=== PATIENT | female | born 1970 | race Caucasian/White ===

== ENCOUNTER → 2020-01-20 15:16 | Outpatient (BNVA) | payer BC, SELFPAY | PROVIDERS: Visit Provider Nurse Practitioner | DX: B34.9 Viral infection, unspecified (principal); Z20.828 Contact with and (suspected) exposure to other viral communicable diseases | CPT/HCPCS: 87081; 87400; 87635; 87880 ==

== ENCOUNTER → 2020-01-26 09:41 | Outpatient (BNVA) | payer BC, SELFPAY | PROVIDERS: Visit Provider Nurse Practitioner Family | DX: R06.2 Wheezing (principal); R05 Cough; R06.02 Shortness of breath; J43.9 Emphysema, unspecified | CPT/HCPCS: 71046 ==

== ENCOUNTER 2020-10-14 10:29 | Outpatient (CLI) | payer OTHER, SELFPAY ==
--- NOTE | 2020-10-14 11:03 | CT_ITS ---
WS: [id number] CT CHEST WITHOUT INTRAVENOUS CONTRAST HISTORY: CHEST PAIN/SHORTNESS OF BREATH TECHNIQUE: Contiguous 5 mm axial imaging performed on the thorax. Coronal and sagittal reformats are submitted. All CT scans at [facility] use at least one of these dose optimization techniq ues: automated exposure control; mA and/or kV adjustment per patient size (includes targeted exams wh ere dose is matched to clinical indication); or iterative reconstruction. CONTRAST: None DLP: 382.14 mGy.cm COMPARISON: None available. Lungs and central airway: There are patchy opacifications anteriorly in the RIGHT middle lobe and in the anterior RIGHT lower lobe and also the lingula. Configuration suggests these are all related to a telectasis. Pleura: Normal. No pleural effusion. Heart and pericardium: Normal size heart with no pericardial effusion. Mediastinum and jose daniel: Calcified lymph nodes in the mediastinum and LEFT hilum. Vessels: Normal size aortic and pulmonary artery. No coronary artery calcifications. Chest wall and lower neck: Bilateral breast implants. Upper abdomen: Prior cholecystectomy. Mild hepatic steatosis. Osseous structures: No destructive process. CT/CT chest wo con [id number] IMPRESSION: 1. Subsegmental areas of atelectasis in the anterior RIGHT middle, RIGHT lower and lingula. Suggest 2-3 month follow-up after treatment to be sure these area s resolve and there is no underlying neoplasm. 2. Bilateral breast implants.
== END 2020-10-14 10:30 | disposition home or self-care (01) ==
PROVIDERS: PCP Nurse Practitioner Family; Visit Provider Nurse Practitioner Family
DX: R06.02 Shortness of breath (principal); R07.9 Chest pain, unspecified; J98.11 Atelectasis; Z98.82 Breast implant status
CPT/HCPCS: 71250; 80053; 80061; 81003; 82306; 83036; 84443; 85007; 85027; 87077; 87086; 87184

== ENCOUNTER 2020-10-31 10:40 | Emergency (ER) | payer OTHER, SELFPAY ==
[2020-10-31 11:09] VITALS: BP 132/85; PULSE 86; RESP 18; TEMP 36.7; O2SAT 97; BMI 21.9
--- NOTE | 2020-10-31 11:33 | XRR_ITS ---
PROCEDURE INFORMATION: Exam: XR Chest, 1 View Exam date and time: 10/31/2020 11:38 AM Age: 50 years old Clinical indication: Shortness of breath; Additional info: Cough TECHNIQUE: Imaging protocol: XR of the chest Views: 1 view. COMPARISON: CT chest con [id number] 10/14/2020 11:02 AM FINDINGS: Lungs: Unremarkable. No consolidation. Pleural space: Unremarkable. No pleural effusion. No pneumothorax. Heart/Mediastinum: Unremarkable. No cardiomegaly. Bones/joints: Unremarkable. XR/XR chest 1V portable [id number] IMPRESSION: No acute findings.
[2020-10-31 11:43] VITALS: O2SAT 97
[2020-10-31] MEDS: HYDROcodone-acetaminophen 5-325 mg Tablet 1 TAB PO (11:50)
[2020-10-31] MEDS: ondansetron 4 MG Tablet PO (11:50)
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
[2020-10-31 12:51] VITALS: BP 117/67; PULSE 81; RESP 18; O2SAT 95
[2020-11-01 15:32] LABS: Coronavirus Test Green County DETECTED
== END 2020-10-31 12:51 | disposition home or self-care (01) ==
PROVIDERS: Emergency Provider Emergency Medicine; PCP Nurse Practitioner Family
DX: U07.1 COVID-19 (principal); R09.1 Pleurisy
CPT/HCPCS: 12345; 71045; 87635; 99281; 99283; Q0162

== ENCOUNTER → 2020-11-26 12:09 | Outpatient (BNVA) | payer OTHER, SELFPAY | PROVIDERS: PCP Nurse Practitioner Family; Visit Provider Nurse Practitioner Family | DX: E03.9 Hypothyroidism, unspecified (principal); F41.9 Anxiety disorder, unspecified; A49.9 Bacterial infection, unspecified; N39.0 Urinary tract infection, site not specified | CPT/HCPCS: 81003; 84443; 87077; 87086; 87184 ==

== ENCOUNTER 2020-12-01 12:16 | Outpatient (CLI) | payer OTHER, SELFPAY ==
[2020-12-01 12:53] LABS: Basophils % 0.4 %; Eosinophils # 0.3 10^3/uL (0.0-0.8); Eosinophils % 5.4 %; Hematocrit 41.7 % (37.0-47.0); Hemoglobin 13.6 g/dL (11.5-15.3); Lymphocytes # 1.5 10^3/uL (0.8-4.8); Lymphocytes % 29.6 %; Mean Corpuscular HGB Conc 32.6 g/dL (30.0-36.0); Mean Corpuscular Hemoglobin 32.2 pg (28.0-34.0); Mean Corpuscular Volume 98.8 fL (81-99); Mean Platelet Volume 9.5 fL (7.4-10.4); Monocytes # 0.3 10^3/uL (0.2-0.9); Neutrophils # 2.95 10^3/uL (1.8-7.7); Neutrophils % 59.6 %; Nucleated Red Blood Cells % 0 %; Platelet Count 252 10^3/cmm (130-400); Red Blood Count 4.22 10^6/uL (4.1-5.3); Red Cell Distribution Width 13.7 % (12.1-15.1)
[2020-12-02 16:09] LABS: Alternaria Alternata (M6) Ige <0.10 kU/L; Alternaria Class 0; Cat Dander (E1) Ige 0.11 kU/L; Cat Dander Class 0/1; D. Farinae Class 0; Dermatophagoides Class 0; Dermatophagoides Farinae (D2) <0.10 kU/L; Dermatophagoides Pteronyssinus <0.10 kU/L; Dog Dander Class 4; Elm (T8) Ige <0.10 kU/L; Elm Class 0; English Plantain (W9) Ige <0.10 kU/L; English Plantain Class 0; House Dust (Greer) (H1) Ige 2.61 kU/L; House Dust (Hollister- Stier) 1.27 kU/L; House Dust Class 2; Immunoglobulin E 106 kU/L (<OR=114); Immunoglobulin E 113 kU/L (<OR=114); Lamb'S Quarters (Goose Foot) <0.10 kU/L; Lamb'S Quarters Class 0; Maple (Box Elder) (T1) Ige <0.10 kU/L; Maple Class 0; Mucor Racemosus Class 0; Oak (T7) Ige <0.10 kU/L; Oak Class 0; Penicillium Class 0; Penicillium Notatum (M1) Ige <0.10 kU/L; Ragweeed Class 3; Rough Marsh Elder (W16) Ige 0.59 kU/L; Rough Marsh Elder Class 1
[2020-12-03 15:38] LABS: Bermuda Class 0; Bermuda Grass (G2) Ige <0.10 kU/L; Johnson Grass (G10) Ige <0.10 kU/L; Johnson Grass Cl 0; June Grass Class 0/1; June Grass(Kentucky Blue) (G8) 0.18 kU/L; Meadow Fescue (G4) Ige 0.19 kU/L; Meadow Fescue Class 0/1; Orchard Grass (Cocksfoot) (G3) 0.18 kU/L; Perennial Rye Grass (G5) Ige 0.15 kU/L; Perennial Rye Grass Class 0/1; Sweet Vernal Class 0/1; Sweet Vernal Grass (G1) Ige 0.14 kU/L; Timothy Grass (G6) Ige 0.16 kU/L; Timothy Grass Class 0/1
[2020-12-03 19:14] LABS: Aspergillus Fumigatus, Igg Ab, 12.6 mg/L (<=102)
== END 2020-12-01 12:17 | disposition home or self-care (01) ==
PROVIDERS: PCP Nurse Practitioner Family; Visit Provider Internal Medicine Pulmonary Disease
DX: R06.02 Shortness of breath (principal)
CPT/HCPCS: 36415; 82785; 85025; 86003

== ENCOUNTER 2020-12-01 14:42 | Outpatient (CLI) | payer OTHER, SELFPAY ==
--- NOTE | 2020-12-01 14:54 | XR_ITS ---
WS: [id number] Left shoulder, 3 views, 12/01/2020 Clinical Data: M75.92 - Shoulder lesion, unspecified, left shoulder Comparison: None. Findings: No fractures or dislocations are seen. The AC joint is normal. The adjacent left clavicle, left scapu la and ribs are normal. The soft tissues are unremarkable. There is an enchondroma or bone infarct in the left humeral head. XR/XR shoulder LT min 2V* [id number] Impression: Negative left shoulder.
== END 2020-12-01 14:43 | disposition home or self-care (01) ==
PROVIDERS: PCP Nurse Practitioner Family; Visit Provider Nurse Practitioner Family
DX: M75.92 Shoulder lesion, unspecified, left shoulder (principal)
CPT/HCPCS: 73030

== ENCOUNTER → 2020-12-17 09:34 | Outpatient (BNVA) | payer OTHER, SELFPAY | PROVIDERS: PCP Nurse Practitioner Family; Visit Provider Internal Medicine Pulmonary Disease | DX: Z01.812 Encounter for preprocedural laboratory examination (principal); R06.02 Shortness of breath | CPT/HCPCS: 87635 ==

== ENCOUNTER 2021-06-13 12:56 | Outpatient (CLI) | payer OTHER, SELFPAY ==
--- NOTE | 2021-06-13 13:06 | MM_ITS ---
WS: [id number] BILATERAL SCREENING MAMMOGRAM WITH MAHAMED DISPLACEMENT VIEWS. CAD PERFORMED. HISTORY: SCREENING COMPARISON: 09/08/2010 and 08/25/2010 Bilateral craniocaudal and mediolateral like views are performed. Mahamed displacement views in CC and MLO projection also performed. Breasts composition: The breasts are heterogeneously dense, which may obscure small masses. Retropec kendell implants are intact. Benign calcifications in the LEFT breast. No suspicious masses. MM/[place] [id number] IMPRESSION: BI-RADS: 2-Benign FOLLOW-UP: 1 Year Follow-up
== END 2021-06-13 12:57 | disposition home or self-care (01) ==
LOC: RADSHAW 13:04
PROVIDERS: PCP Nurse Practitioner Family; Visit Provider Registered Nurse
DX: Z12.31 Encounter for screening mammogram for malignant neoplasm of breast (principal)
CPT/HCPCS: 77067

== ENCOUNTER → 2021-06-29 10:12 | Outpatient (BNVA) | payer OTHER, SELFPAY | PROVIDERS: PCP Nurse Practitioner Family; Visit Provider Internal Medicine Rheumatology | DX: M19.90 Unspecified osteoarthritis, unspecified site (principal); R76.8 Other specified abnormal immunological findings in serum; Z79.899 Other long term (current) drug therapy; Z11.59 Encounter for screening for other viral diseases; Z11.1 Encounter for screening for respiratory tuberculosis; M79.7 Fibromyalgia; F32.9 Major depressive disorder, single episode, unspecified; R74.01 Elevation of levels of liver transaminase levels; Z79.1 Long term (current) use of non-steroidal anti-inflammatories (NSAID); Z87.891 Personal history of nicotine dependence | CPT/HCPCS: 99204 ==

== ENCOUNTER 2021-06-29 12:22 | Outpatient (CLI) | payer OTHER, SELFPAY ==
[2021-06-29 13:19] LABS: Specific Gravity, Urine 1.025 (1.005-1.030); Urine Appearance SL Hazy (CLEAR); Urine Color Yellow (Yellow); pH Urine 5 (5-7)
[2021-06-29 13:20] LABS: Bilirubin Urine Neg (Negative); Blood Urine 3+ (Negative); Glucose Urine UA Norm (Normal); Ketones Urine 1+ (Negative); Leukocyte Esterase Urine Negative (Negative); Nitrate Urine Positive (Negative); Protein Urine Neg (Negative); Urobilinogen Urine Norm (Negative)
[2021-06-29 13:21] LABS: Add Urine Culture? Yes; Bacteria Urine 4+ /hpf; WBC Urine 0-4 /hpf (0-5)
[2021-06-29 13:44] LABS: Erythrocyte Sedimentation Rate 8 mm/hr (0-15)
[2021-06-29 13:55] LABS: 25 Hydroxy Vitamin D 37 ng/mL (30-100); C Reactive Protein 0.3 mg/L (0.0-4.9); Glomerular Filtration Rate 130.1 mL/min (90-130); Thyroid Stimulating Hormone 7.73 uIU/mL (0.27-4.20)
[2021-06-29 13:56] LABS: Hepatitis B Core AB, Total Non-Reactive (Nonreactive); Hepatitis B Surface Antigen Non-Reactive (Nonreactive); Hepatitis C Virus Antibody Non-Reactive (Nonreactive)
[2021-06-29 13:59] LABS: Urine Creatinine 153 mg/dL (28-217); Urine Protein Random 13 mg/dL
[2021-06-29 15:00] LABS: Complement C3 152 mg/dL (90-180)
[2021-06-30 12:49] LABS: COMPLEMENT COMPONENT C3C 140 mg/dL (83-193); COMPLEMENT COMPONENT C4C 35 mg/dL (15-57)
[2021-06-30 14:27] LABS: CENTROMERE B ANTIBODY <1.0 NEG AI (<1.0 NEG); JO-1 ANTIBODY <1.0 NEG AI (<1.0 NEG); RNP ANTIBODY <1.0 NEG AI (<1.0 NEG); SCL-70 ANTIBODY <1.0 NEG AI (<1.0 NEG); SJOGREN'S ANTIBODY (SS-A) <1.0 NEG AI (<1.0 NEG); SM ANTIBODY <1.0 NEG AI (<1.0 NEG); SS-B <1.0 NEG AI (<1.0 NEG)
[2021-06-30 14:52] LABS: THYROID PEROXIDASE ANTIBODIES 11 IU/mL (<9)
[2021-06-30 15:32] LABS: Cyclic Citrullinated Peptide <16 UNITS
[2021-07-01 11:13] LABS: ANA SCREEN, IFA POSITIVE (NEGATIVE); Anti-Nuclear AB Pattern #2 Nuclear, Speckled; Anti-Nuclear AB Pattern #3 Cytoplasmic
[2021-07-01 13:37] LABS: COMPLEMENT, TOTAL (CH50) >60 U/mL (31-60)
[2021-07-01 15:37] LABS: Quantiferon Mitogen 8.17 IU/mL; Quantiferon Nil 0.03 IU/mL; Quantiferon Plus TB1 <0.00 IU/mL; Quantiferon TB Gold NEGATIVE (NEGATIVE)
[2021-07-02 17:07] LABS: DNA AB (DS) CRITHIDIA,IFA NEGATIVE (NEGATIVE)
== END 2021-06-29 12:23 | disposition home or self-care (01) ==
PROVIDERS: PCP Nurse Practitioner Family; Visit Provider Internal Medicine Rheumatology
DX: E03.9 Hypothyroidism, unspecified (principal); R76.8 Other specified abnormal immunological findings in serum; Z79.899 Other long term (current) drug therapy; Z11.59 Encounter for screening for other viral diseases; Z11.1 Encounter for screening for respiratory tuberculosis
CPT/HCPCS: 36415; 81001; 82306; 82565; 82570; 84156; 84443; 85651; 86140; 86160; 86162; 86235; 86255; 86376; 86480; 86704; 86803; 87340

== ENCOUNTER 2021-09-26 14:44 | Emergency (ER) | payer OTHER, SELFPAY ==
[2021-09-26 14:55] VITALS: BP 128/82; PULSE 99; RESP 16; TEMP 36.6; O2SAT 99; BMI 26.3
--- NOTE | 2021-09-26 17:43 | XRR_ITS ---
PROCEDURE INFORMATION: Exam: XR Abdomen Exam date and time: 09/26/2021 5:43 PM Age: 50 years old Clinical indication: Abdominal pain; Acute; Patient HX: No bm for 7 days; Additional info: Constipation TECHNIQUE: Imaging protocol: XR of the abdomen. Views: 2 Views. Upright and supine views. COMPARISON: CR XR chest 1V portable [id number] 10/31/2020 11:38 AM FINDINGS: Gastrointestinal tract: Constipation without bowel dilation to indicate obstruction. Intraperitoneal space: Normal. No free air. Bones/joints: Unremarkable for age. XR/XR acute abdomen series [id number] IMPRESSION: Constipation without bowel dilation to indicate obstruction. Radiation Dose CTDIVOL = (mGy): DLP = (mGy-cm)
--- NOTE | 2021-09-26 20:42 | CTR_ITS ---
PROCEDURE INFORMATION: Exam: CT Abdomen And Pelvis With Contrast Exam date and time: 09/26/2021 8:42 PM Age: 50 years old Clinical indication: Constipation; Abdominal pain; Prior surgery; Surgery type: Breast aug, hernia, gb, hyst, , laproscopic; Additional info: Eval small bowel TECHNIQUE: Imaging protocol: Computed tomography of the abdomen and pelvis with contrast. Radiation optimization: All CT scans at this facility use at least one of these dose optimization techniques: automated exposure control; mA and/or kV adjustment per patient size (includes targeted exams where dose is matched to clinical indication); or iterative reconstruction. Contrast material: OMNI 300; Contrast volume: 95 ml; Contrast route: INTRAVENOUS (IV); COMPARISON: CR (ABDOMEN, ) 09/26/2021 5:53 PM RADIATION DOSE METRICS: Total DLP (mGy-cm): 1242.81 FINDINGS: Liver: Normal. No mass. Gallbladder and bile ducts: Cholecystectomy. Prominence of the extrahepatic bile ducts is consistent with reservoir effect. Pancreas: Normal. No ductal dilation. Spleen: Normal. No splenomegaly. Adrenal glands: Normal. No mass. Kidneys and ureters: Normal. No hydronephrosis. Stomach and bowel: Moderate amount of stool in the proximal and transverse colon. The distal colon is decompressed with scattered gas. The stomach and small bowel are unremarkable. No obstruction. Appendix: The appendix is visualized and is normal. Intraperitoneal space: Unremarkable. No free air. No significant fluid collection. Vasculature: Unremarkable. No abdominal aortic aneurysm. Lymph nodes: Unremarkable. No enlarged lymph nodes. Urinary bladder: Unremarkable as visualized. Reproductive: The uterus and ovaries are absent. Bones/joints: Unremarkable. No acute fracture. Soft tissues: Bilateral breast implants. CT/CT abdomen pelvis w con* [id number] IMPRESSION: 1. No acute abnormality identified in the abdomen or pelvis. 2. Stool volume in the colon could indicate constipation in the right clinical setting. Radiation Dose CTDIVOL = (mGy): DLP = 1242.81 (mGy-cm)
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
[2021-09-26] MEDS: iohexol 300 mg/mL 100 mL Btl IV (20:55)
[2021-09-26] MEDS: acetaminophen 500 mg Tablet 1000 MG PO (21:13)
[2021-09-26] MEDS: ondansetron 2 mg/ML SDV 2 mL 4 MG IVP (21:15)
[2021-09-26] MEDS: famotidine 20 mg/2 mL INJ IVP (21:16)
[2021-09-26] MEDS: sodium chloride 0.9% 1,000 ML 999 ML IV (21:18)
[2021-09-26 21:34] LABS: Basophils % 0.6 %; Eosinophils # 0.1 10^3/uL (0.0-0.8); Eosinophils % 2.7 %; Hematocrit 36.1 % (37.0-47.0); Hemoglobin 12.4 g/dL (11.5-15.3); Lymphocytes # 1.9 10^3/uL (0.8-4.8); Lymphocytes % 39.2 %; Mean Corpuscular HGB Conc 34.3 g/dL (30.0-36.0); Mean Corpuscular Hemoglobin 33.2 pg (28.0-34.0); Mean Corpuscular Volume 96.8 fl (81-99); Mean Platelet Volume 9.8 fL (7.4-10.4); Monocytes # 0.3 10^3/uL (0.2-0.9); Monocytes % 5.9 %; Neutrophils # 2.43 10^3/uL (1.8-7.7); Neutrophils % 51.4 %; Nucleated Red Blood Cells % 0 %; Platelet Count 207 10^3/cmm (130-400); Red Blood Count 3.73 10^6/uL (4.1-5.3); Red Cell Distribution Width 12.4 % (12.1-15.1); White Blood Count 4.7 10^3/uL (4.0-10.0)
[2021-09-26 21:54] LABS: Alanine Aminotransferase 35 U/L (0-33); Albumin Level 4.2 g/dL (3.5-5.2); Alkaline Phosphatase 119 IU/L (35-105); Anion Gap 16.5 (5-19); Aspartate Amino Transferase 31 U/L (0-32); Blood Urea Nitrogen 21 mg/dL (6-20); Calcium 8.4 mg/dL (8.5-10.5); Carbon Dioxide 21 mmol/L (22-29); Chloride 104 mmol/L (98-107); Globulin 2.1 g/dL (1.3-4.6); Glomerular Filtration Rate 75.6 mL/min (90-130); Glucose 88 mg/dL (65-115); Osmolality Calculated 288 mOsm/kg (285-295); Potassium 3.5 mmol/L (3.5-5.1); Sodium 138 mmol/L (136-145); Total Bilirubin 0.2 mg/dL (0.15-1.2); Total Protein 6.3 g/dL (6.6-8.7)
[2021-09-26 21:56] LABS: HCG, Serum Qual Negative (Negative)
[2021-09-26 22:19] VITALS: BP 115/73; PULSE 74; RESP 14; O2SAT 98
== END 2021-09-26 20:19 | disposition home or self-care (01) ==
PROVIDERS: Nurse Practitioner Family; Emergency Provider Emergency Medicine; PCP Nurse Practitioner Family
DX: K59.00 Constipation, unspecified (principal); M54.89 Other dorsalgia; R11.2 Nausea with vomiting, unspecified; Z87.891 Personal history of nicotine dependence
CPT/HCPCS: 36415; 74022; 74177; 80053; 84703; 85025; 96361; 96374; 96375; 99284; J2405; J3490; J7030; Q9967

== ENCOUNTER → 2021-10-04 16:54 | Outpatient (BNVA) | payer OTHER, SELFPAY | PROVIDERS: PCP Nurse Practitioner Family; Visit Provider Nurse Practitioner Family | DX: R10.9 Unspecified abdominal pain (principal); E03.9 Hypothyroidism, unspecified; Z13.6 Encounter for screening for cardiovascular disorders; K59.00 Constipation, unspecified; K59.04 Chronic idiopathic constipation; Z79.899 Other long term (current) drug therapy; N39.0 Urinary tract infection, site not specified | CPT/HCPCS: 80053; 80061; 81003; 82150; 83036; 83690; 84439; 84443; 85025 ==

== ENCOUNTER → 2021-10-12 10:07 | Outpatient (BNVA) | payer OTHER, SELFPAY | PROVIDERS: PCP Nurse Practitioner Family; Visit Provider Nurse Practitioner Family | DX: D64.9 Anemia, unspecified (principal); N39.0 Urinary tract infection, site not specified | CPT/HCPCS: 81003; 87086 ==

== ENCOUNTER 2021-10-13 12:09 | Outpatient (CLI) | payer OTHER, SELFPAY ==
--- NOTE | 2021-10-13 12:13 | XR_ITS ---
WS: [id number] ABDOMEN: SUPINE FILM HISTORY: uti COMPARISON: CT 09/26/2021 Moderate diffuse constipation and fecal retention. Phleboliths in the LEFT pelvis. Prior cholecystect kylie. Right kidney: No renal or ureteral stone identified. Left kidney: No renal or ureteral stone identified. XR/XR KUB [id number] IMPRESSION: 1. No renal or ureteral calcifications. 2. Prior cholecystectomy.
== END 2021-10-13 12:10 | disposition home or self-care (01) ==
PROVIDERS: PCP Nurse Practitioner Family; Visit Provider Psychiatry & Neurology Addiction Psychiatry
DX: N39.0 Urinary tract infection, site not specified (principal); A49.9 Bacterial infection, unspecified; R10.84 Generalized abdominal pain; Z90.49 Acquired absence of other specified parts of digestive tract
CPT/HCPCS: 74018; 81003

== ENCOUNTER 2022-01-18 15:10 | Outpatient (CLI) | payer OTHER, SELFPAY ==
--- NOTE | 2022-01-18 15:30 | CT_ITS ---
WS: [id number] CT CHEST TECHNIQUE: Noncontrast CT of the chest with coronal and sagittal reformatted images. CLINICAL INFORMATION: J98.11 - Atelectasis COMPARISON: October 14, 2020 DLP: [address] scans at [facility] use at least one of these dose optimization techniques: automated e xposure control; mA and/or kV adjustment per patient size (includes targeted exams where dose is matc hed to clinical indication); or iterative reconstruction. FINDINGS: Postoperative changes bilateral breast implants. Both lungs are well aerated. No acute pulmonary infi ltrates. No focal pneumonia or pleural fluid. Subsegmental atelectasis RIGHT upper lobe and lingula h ave improved and nearly resolved compared to previous. Normal caliber thoracic aorta. No mediastinal or hilar lymphadenopathy. Calcified anterior mediastinal and hilar nodes. A few calcified granulomas. No axillary lymphadenopathy. Adrenal glands are normal. Cholecystectomy clips. CT/CT chest wo con [id number] IMPRESSION: 1. Previously described areas of subsegmental atelectasis in the RIGHT upper l obe and lingula have improved and nearly resolved. 2. No new suspicious pulmonary opacities. 3. No mediastinal or hilar lymphadenopathy. 4. Prior cholecystectomy.
[2022-01-18 17:21] LABS: Bilirubin Urine Neg (Negative); Blood Urine Neg (Negative); Glucose Urine UA Norm (Normal); Ketones Urine Negative (Negative); Leukocyte Esterase Urine Negative (Negative); Nitrate Urine Negative (Negative); Protein Urine Neg (Negative); Specific Gravity, Urine 1.005 (1.005-1.030); Urine Appearance Clear (CLEAR); Urine Color Yellow (Yellow); Urobilinogen Urine Norm (Negative); pH Urine 7 (5-7)
[2022-01-18 17:22] LABS: Squamous Epithelial Cell Urine 0-4 /hpf (0-5)
[2022-01-18 17:23] LABS: Add Urine Culture? No
== END 2022-01-18 15:11 | disposition home or self-care (01) ==
PROVIDERS: PCP Nurse Practitioner Family; Referring Provider Internal Medicine Rheumatology; Visit Provider Internal Medicine Pulmonary Disease
DX: N39.0 Urinary tract infection, site not specified (principal); Z79.899 Other long term (current) drug therapy; J98.11 Atelectasis; Z90.49 Acquired absence of other specified parts of digestive tract
CPT/HCPCS: 71250; 81001; 87086

== ENCOUNTER 2022-01-20 19:02 | Emergency (ER) | payer OTHER, SELFPAY ==
[2022-01-20 19:03] VITALS: BP 129/97; PULSE 90; RESP 18; TEMP 36.6; O2SAT 98; BMI 23.5
[2022-01-20] MEDS: sodium chloride 0.9% 1,000 ML 999 ML IV (19:20)
[2022-01-20] MEDS: famotidine 20 mg/2 mL INJ IVP (19:20)
[2022-01-20] MEDS: ondansetron 2 mg/ML SDV 2 mL 4 MG IVP ×2 (19:20→22:38)
[2022-01-20 19:21] LABS: Basophils % 0.3 %; Eosinophils # 0.1 10^3/uL (0.0-0.8); Eosinophils % 0.5 %; Hematocrit 45.8 % (37.0-47.0); Hemoglobin 15.3 g/dL (11.5-15.3); Lymphocytes # 2.2 10^3/uL (0.8-4.8); Lymphocytes % 19.5 %; Mean Corpuscular HGB Conc 33.4 g/dL (30.0-36.0); Mean Corpuscular Hemoglobin 34.2 pg (28.0-34.0); Mean Corpuscular Volume 102.5 fl (81-99); Mean Platelet Volume 10.9 fL (7.4-10.4); Monocytes # 0.3 10^3/uL (0.2-0.9); Neutrophils # 8.55 10^3/uL (1.8-7.7); Neutrophils % 76.3 %; Nucleated Red Blood Cells % 0 %; Platelet Count 288 10^3/cmm (130-400); Red Blood Count 4.47 10^6/uL (4.1-5.3); Red Cell Distribution Width 15.2 % (12.1-15.1); White Blood Count 11.2 10^3/uL (4.0-10.0)
[2022-01-20] MEDS: acetaminophen 500 mg Tablet PO (19:21)
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
[2022-01-20 19:33] VITALS: BP 121/80; PULSE 85; RESP 16; O2SAT 99
[2022-01-20 19:46] LABS: Alanine Aminotransferase 218 U/L (0-33); Albumin Level 5.1 g/dL (3.5-5.2); Alkaline Phosphatase 235 IU/L (35-105); Aspartate Amino Transferase 206 U/L (0-32); Blood Urea Nitrogen 28 mg/dL (6-20); Calcium 10.7 mg/dL (8.5-10.5); Carbon Dioxide 21 mmol/L (22-29); Chloride 101 mmol/L (98-107); Globulin 2.9 g/dL (1.3-4.6); Glomerular Filtration Rate 58.2 mL/min (90-130); Glucose 110 mg/dL (65-115); Lipase 34 U/L (13-60); Osmolality Calculated 294 mOsm/kg (285-295); Sodium 139 mmol/L (136-145); Total Bilirubin 0.2 mg/dL (0.15-1.2)
[2022-01-20 19:49] LABS: Anion Gap 20.8 (5-19); Potassium 3.8 mmol/L (3.5-5.1)
[2022-01-20 20:35] LABS: Add Urine Microscopic? YES; Bilirubin Urine Neg (Negative); Blood Urine Neg (Negative); Glucose Urine UA Norm (Normal); Ketones Urine 1+ (Negative); Leukocyte Esterase Urine Trace (Negative); Nitrate Urine Negative (Negative); Protein Urine Neg (Negative); Urine Appearance Clear (CLEAR); Urine Color Yellow (Yellow); Urobilinogen Urine Norm (Negative); pH Urine 5 (5-7)
[2022-01-20 20:38] LABS: Add Urine Culture? No; Bacteria Urine 2+ /hpf; Mucus Urine 3+ /hpf; RBC Urine 0-4 /hpf (0-2); Squamous Epithelial Cell Urine 15-25 /hpf (0-5)
--- NOTE | 2022-01-20 20:50 | CTR_ITS ---
PROCEDURE INFORMATION: Exam: CT Abdomen And Pelvis With Contrast Exam date and time: 01/20/2022 9:02 PM Age: 51 years old Clinical indication: Nausea and vomiting; Prior surgery; Surgery type: Gb. Hernia. Hysterectomy. Csection. ; Patient HX: PT C/O n/v. Recent allergic reaction to cipro. History of recurrent utis. ; Additional info: Eval pathologies TECHNIQUE: Imaging protocol: Computed tomography of the abdomen and pelvis with contrast. Radiation optimization: All CT scans at this facility use at least one of these dose optimization techniques: automated exposure control; mA and/or kV adjustment per patient size (includes targeted exams where dose is matched to clinical indication); or iterative reconstruction. Contrast material: OMNI 300; Contrast volume: 95 ml; Contrast route: INTRAVENOUS (IV); COMPARISON: CT abdomen pelvis w con* [id number] 09/26/2021 8:52 PM RADIATION DOSE METRICS: Total DLP (mGy-cm): 1251.19 FINDINGS: Liver: Hypodensity in the right liver lobe is too small to characterize but is most likely a cyst. No follow-up imaging is recommended. Gallbladder and bile ducts: Cholecystectomy. Mild prominence of the bile ducts is consistent with reservoir effect. Pancreas: Normal. No ductal dilation. Spleen: Normal. No splenomegaly. Adrenal glands: Normal. No mass. Kidneys and ureters: Normal. No hydronephrosis. Stomach and bowel: Fluid in the proximal and transverse colon. Stool in the distal colon. The rectum is decompressed. The stomach is unremarkable. Suspected mild wall thickening throughout the small bowel. No small bowel dilatation or air-fluid levels. Appendix: The appendix is visualized and is normal. Intraperitoneal space: Unremarkable. No free air. No significant fluid collection. Vasculature: Unremarkable. No abdominal aortic aneurysm. Lymph nodes: Unremarkable. No enlarged lymph nodes. Urinary bladder: Unremarkable as visualized. Reproductive: The uterus and ovaries are absent. Bones/joints: Unremarkable. No acute fracture. Soft tissues: Right breast implant. Small fat containing umbilical hernia. CT/CT abdomen pelvis w con* [id number] IMPRESSION: 1. Mild wall thickening in the small bowel could represent mild enteritis. No small bowel dilatation or obstruction.
[2022-01-20] MEDS: iohexol 300 mg/mL 100 mL Btl IV (21:03)
[2022-01-20 21:24] VITALS: RESP 18
[2022-01-20] MEDS: HYDROmorphone 1 mg/mL INJ 1 mL 0.5 MG IVP (21:24)
[2022-01-20] MEDS: lidocaine 2% viscous 15 ML, aluminum-mag hydrox-simethicon 30 ML, sucralfate oral liq 1 GM PO (22:37)
== END 2022-01-20 23:15 | disposition home or self-care (01) ==
PROVIDERS: Emergency Provider Emergency Medicine; PCP Nurse Practitioner Family
DX: N39.0 Urinary tract infection, site not specified (principal); K52.9 Noninfective gastroenteritis and colitis, unspecified; Z87.440 Personal history of urinary (tract) infections; Z87.891 Personal history of nicotine dependence
CPT/HCPCS: 74177; 80053; 81001; 83690; 85025; 96361; 96374; 96375; 96376; 99284; J1170; J2405; J3490; J7030; Q9967

== ENCOUNTER → 2022-02-01 08:44 | Outpatient (BNVA) | payer OTHER, SELFPAY | PROVIDERS: PCP Nurse Practitioner Family; Visit Provider Nurse Practitioner | DX: E03.9 Hypothyroidism, unspecified (principal) | CPT/HCPCS: 84443 ==

== ENCOUNTER → 2022-02-02 15:02 | Outpatient (BNVA) | payer OTHER, SELFPAY | PROVIDERS: PCP Nurse Practitioner Family; Visit Provider Nurse Practitioner | DX: E03.9 Hypothyroidism, unspecified (principal) | CPT/HCPCS: 84436; 84481 ==

== ENCOUNTER 2022-02-16 14:40 | Outpatient (CLI) | payer OTHER, SELFPAY ==
--- NOTE | 2022-02-16 15:15 | US_ITS ---
WS: [id number] THYROID ULTRASOUND HISTORY: enlarged thyroid COMPARISON: None available. Right lobe: 1.3 cm x 0.9 cm x 4.0 cm (w x ap x l). Volume: 2.4 cm3. Small caliber heterogeneous thyroid. No increased vascularity. There are a few scattered ill-defined nodules within the gland which are less than a centimeter. No dominant mass. Left lobe: 1.1 cm x 1.2 cm x 3.8 cm (w x ap x l). Volume: 2.5 cm3. Small caliber shrunken thyroid. No increased vascularity. Isthmus: 0.4 cm. US/US thyroid [id number] IMPRESSION: 1. Shrunken heterogeneous minimally nodular thyroid gland. No dominant nodule. 2. No increased vascularity.
== END 2022-02-16 14:41 | disposition home or self-care (01) ==
LOC: RAD 14:43
PROVIDERS: PCP Nurse Practitioner Family; Visit Provider Nurse Practitioner
DX: E04.9 Nontoxic goiter, unspecified (principal); Z79.899 Other long term (current) drug therapy; M19.90 Unspecified osteoarthritis, unspecified site; N39.0 Urinary tract infection, site not specified
CPT/HCPCS: 36415; 76536; 80076; 81001; 87077; 87086; 87186

== ENCOUNTER → 2022-09-06 14:51 | Outpatient (BNVA) | payer OTHER, SELFPAY | PROVIDERS: Visit Provider Nurse Practitioner | DX: E03.8 Other specified hypothyroidism (principal); E06.3 Autoimmune thyroiditis | CPT/HCPCS: 84443 ==

== ENCOUNTER → 2022-12-26 15:53 | Outpatient (BNVA) | payer OTHER, SELFPAY | PROVIDERS: PCP Nurse Practitioner; Visit Provider Nurse Practitioner | DX: R05.9 Cough, unspecified (principal) | CPT/HCPCS: 71046 ==

== ENCOUNTER → 2023-06-14 10:52 | Outpatient (BNVA) | payer OTHER, SELFPAY | PROVIDERS: PCP Nurse Practitioner; Visit Provider Nurse Practitioner | DX: R41.3 Other amnesia (principal) | CPT/HCPCS: 82607; 82670; 82746; 83001; 84144; 84443; 86592 ==

== ENCOUNTER → 2023-06-28 09:53 | Outpatient (BNVA) | payer OTHER, SELFPAY | PROVIDERS: PCP Nurse Practitioner; Visit Provider Nurse Practitioner | DX: E03.9 Hypothyroidism, unspecified (principal); N39.0 Urinary tract infection, site not specified | CPT/HCPCS: 80053; 81000; 84443; 85025; 85651; 86038; 86140; 86431; 87077; 87086; 87184 ==

== ENCOUNTER 2023-07-20 11:45 | Outpatient (CLI) | payer OTHER, SELFPAY ==
--- NOTE | 2023-07-20 12:07 | US_ITS ---
WS: [id number] ULTRASOUND THYROID TECHNIQUE: Ultrasound of the thyroid. CLINICAL INFORMATION: OTHER CHRONIC THYROIDITIS COMPARISON: 2021. FINDINGS: Thyroid: Heterogeneous somewhat atrophic thyroid gland LEFT greater than RIGHT lobe similar to previo us. A few ill-defined tiny subcentimeter nodules. No dominant nodules to target for biopsy. right thyroid lobe: 3.4 cm x 1.2 cm x 1.1 cm Left thyroid lobe: 3.0 cm x 1.2 cm x 0.7 cm. Isthmus: 0.1 mm. Cervical lymphadenopathy: None. IMPRESSION: 1. No remarkable changes compared to previous. 2. No dominant nodules to target for biopsy 3. Stable atrophic heterogeneous thyroid with tiny micronodules
== END 2023-07-20 11:46 | disposition home or self-care (01) ==
PROVIDERS: PCP Nurse Practitioner; Visit Provider Obstetrics & Gynecology Gynecology
DX: E06.5 Other chronic thyroiditis (principal)
CPT/HCPCS: 76536

== ENCOUNTER → 2023-08-07 08:59 | Outpatient (BNVA) | payer OTHER, SELFPAY | PROVIDERS: PCP Nurse Practitioner; Visit Provider Nurse Practitioner Family | DX: M25.50 Pain in unspecified joint (principal); M19.032 Primary osteoarthritis, left wrist; M19.042 Primary osteoarthritis, left hand; M19.072 Primary osteoarthritis, left ankle and foot | CPT/HCPCS: 73100; 73120; 73600; 73620 ==

== ENCOUNTER 2023-08-08 13:00 | Outpatient (CLI) | payer OTHER, SELFPAY | END 2023-08-08 13:01 | disposition home or self-care (01) | LOC: SPT 08-09 09:16 | PROVIDERS: PCP Nurse Practitioner; Visit Provider Podiatrist Foot & Ankle Surgery | DX: Z46.89 Encounter for fitting and adjustment of other specified devices (principal); S82.309D Unspecified fracture of lower end of unspecified tibia, subsequent encounter for closed fracture with routine healing; X58.XXXD Exposure to other specified factors, subsequent encounter | CPT/HCPCS: L4361 ==

== ENCOUNTER → 2023-08-08 13:01 | Outpatient (BNVA) | payer OTHER, SELFPAY | PROVIDERS: PCP Nurse Practitioner; Visit Provider Podiatrist Foot & Ankle Surgery | DX: S82.392A Other fracture of lower end of left tibia, initial encounter for closed fracture (principal); M20.22 Hallux rigidus, left foot; W19.XXXA Unspecified fall, initial encounter; Y93.02 Activity, running | CPT/HCPCS: 99203 ==

== ENCOUNTER 2023-08-08 14:32 | Outpatient (CLI) | payer OTHER, SELFPAY ==
--- NOTE | 2023-08-08 14:47 | XR_ITS ---
WS: [id number] Sacroiliac joints, 3 views, 08/08/2023 Clinical Data: Multiple joint pain Comparison: None. Findings: The SI joints are normal in width. No erosion, sclerosis or destruction is seen. There are no fractur es or dislocations. The adjacent visualized pelvis and hips are unremarkable. Impression: Negative SI joints.
== END 2023-08-08 14:33 | disposition home or self-care (01) ==
PROVIDERS: PCP Nurse Practitioner
DX: M25.50 Pain in unspecified joint (principal)
CPT/HCPCS: 72202

== ENCOUNTER → 2023-08-27 13:39 | Outpatient (BNVA) | payer OTHER, SELFPAY | PROVIDERS: PCP Nurse Practitioner; Visit Provider Podiatrist Foot & Ankle Surgery | DX: M20.22 Hallux rigidus, left foot | CPT/HCPCS: 73610; 99213 ==

== ENCOUNTER → 2023-09-11 09:12 | Outpatient (BNVA) | payer OTHER, SELFPAY | PROVIDERS: PCP Nurse Practitioner; Visit Provider Nurse Practitioner Family | DX: M19.072 Primary osteoarthritis, left ankle and foot (principal); R39.9 Unspecified symptoms and signs involving the genitourinary system | CPT/HCPCS: 73630; 81003 ==

== ENCOUNTER 2023-09-28 06:23 | Day surgery (SDC) | payer OTHER, SELFPAY ==
[2023-09-28] VITALS (8 sets, daily range): BP systolic 97–105; BP diastolic 58–79; PULSE 57–67; RESP 12–18; TEMP 36.1–36.3; O2SAT 95–99; BMI 25.0
--- NOTE | 2023-09-28 | XR_ITS ---
WS: [id number] Left foot, C-arm fluoroscopy, 09/28/2023 Clinical Data: OR PIC, METATARSOPHALANGEAL JOINT FUSION Comparison: Left foot, 09/11/2023 Findings: Dr. Yates fused the left first MTP joint with a plate and screws. Impression: Fusion of the left first MTP joint.
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
[2023-09-28] MEDS: sodium chloride 0.9% 1,000 ML 30 ML IV (07:03)
[2023-09-28] MEDS: midazolam 1 mg/mL INJ 2 mL 2 MG IVP (07:14)
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
--- NOTE | 2023-09-28 07:18 | P.HPUD_ITS ---
Surgery/Procedure H&P Update DATE OF PROCEDURE: September 28, 2023 DATE H&P PERFORMED: 09/28/23 H&P UPDATE INFORMATION: I have reviewed H&P completed within last 30 days, I have examined patient prior to procedure, No changes to prior documentation and H&P is in [facility] EMR on date indicated CHANGES TO PREVIOUS DOCUMENTATION: none PRIMARY INDICATION FOR PROCEDURE: Left hallux rigidus PLANNED PROCEDURE: Operation Date: 09/28/23 08:05 Proposed Procedures p Left first metatarsophalangeal joint fusion 69672,M21.612(Left) - Gurjit Yates DPM
--- NOTE | 2023-09-28 07:18 | PM.OP ---
Operative Report Date of procedure: September 28, 2023 Pre-op diagnosis: Left hallux rigidus Post-op diagnosis: Left hallux rigidus Post-op findings: Left hallux rigidus Procedure done: Left first metatarsophalangeal joint fusion. CPT code 93656 Implants: [place] 28 first metatarsal phalangeal joint primary arthrodesis plate 2.7 mm locking screws distally 3.5 mm locking screw proximally and 3.5 mm nonlocking screw 3.0 mm homerun screw 3-0 Vicryl 4-0 Vicryl 4-0 nylon Specimens removed/disposition: None Pathology: None Surgeon: Gurjit Yates DPM Recreational Counselor: Yas Denton Estimated blood loss: 5 mL 39 IV fluids: 0 Urine output: 0 Complications: None Findings: Hallux rigidus, left first metatarsal phalangeal joint Brief History: Angela Lugo is a 52 year old female presents for surgical consultation of left great toe joint arthritis. She has contemplated a variety of treatment options previously discussed and would like to proceed with fusion of the left first metatarsal phalangeal joint. Has failed conservative treatment consisting of supportive shoes with supportive midsole, orthotics, anti-inflammatories, stretching, activity modifications and she continues to have pain that affects her overall quality of life.I reviewed at length with the patient, the risks, potential complications, benefits, alternatives, expectations, and typical outcomes associated with the surgery. The risks and potential complications were explained in detail, including but not limited to infection, wound dehiscence or soft tissue complications, bleeding and hematoma, chronic edema, neuritis or nerve damage producing numbness or chronic pain, CRPS, failure to relieve pain or worsening pain, thick / painful / unsightly scar, limited motion / stiffness, malposition, delayed union, malunion, or nonunion, fracture, reaction to implants, anesthetic complications, venous thromboembolism, and deformity recurrence. I discussed the notion of no regrets with the patient as it pertains to complications and outcomes. The patient seemed to understand the nature of the proposed care and required convalescence. They asked appropriate questions, answered to their satisfaction. They are aware no guarantees can be made as to a satisfactory outcome and they understand there may be other possible unforeseen complications or outcomes not listed here that will be treated accordingly if they arise. There were no written or implied guarantees given to the patient. They gave informed consent to proceed. Planned procedure left first metatarsal phalangeal joint fusion September 28, 2023. Procedure: Under mild sedation the patient was brought to the operating room and remained on the gurney in supine position. A timeout was performed. Anesthesia was then administered by the anesthesia service. Local anesthesia was injected by myself consisting of 20 cc of 0.5% Marcaine plain in a left male block fashion with an additional 20 cc of Exparel at the operative site subcutaneously in a grid like fashion per natural gas treating unit operator recommendation and technique. Well-padded pneumatic tourniquet was applied to the left ankle. The left lower extremity was then scrubbed, prepped and draped utilizing normal aseptic technique. Left foot was exanguinated with an Esmarch bandage and the tourniquet inflated to 250 mmHg. Attention was directed to the left first metatarsal phalangeal joint. A careful incision was made over the first metatarsal phalangeal joint, and dissection was carried through subcutaneous tissue to expose the joint capsule. The joint capsule was meticulously opened, revealing the metatarsal phalangeal joint. Attention was then turned towards preparing the fusion site. The articular surfaces of the joint were denuded to create a suitable environment for fusion, ensuring proper alignment and angulation of the bones. Utilizing standard AO technique the fusion hardware, a [place]den 28 metatarsal phalangeal joint arthrodesis plate, was then positioned dorsally over the joint. This dorsal locking plate was carefully secured with three 2.7 millimeter screws distally and three 3.5 millimeter screws proximally. To enhance the stability of the fusion, a 3.0 millimeter compression screw was also inserted. Throughout the procedure, the placement of the hardware and the positioning of the fusion site were continuously monitored and confirmed with the aid of mini C-arm fluoroscopy, ensuring precise alignment and optimal hardware placement. Placement of the left first metatarsal phalangeal joint arthrodesis site was 5 degrees dorsiflexion, neutral in the frontal plane and slight valgus. Following the successful placement of the fusion hardware, the joint capsule was closed using 3-0 Vicryl sutures. The subcutaneous tissue was approximated with 4-0 Vicryl, and the skin closure was meticulously completed in a layered fashion using 4-0 nylon sutures. To conclude the procedure, the surgical site was dressed with Adaptic, sterile 4 x 4 gauze, and Kerlix, followed by securing it with an Alan wrap. A cam boot was then applied to the left foot to provide immobilization and support during the initial phase of recovery. The procedure was executed without complications, and the alignment and stability achieved were deemed satisfactory for optimal healing and recovery of the left hallux rigidus.
[2023-09-28] MEDS: ceFAZolin 2,000 MG in sodium chloride 0.9% (plus) 50 ML 100 MG IV (07:22)
[2023-09-28] MEDS: BUPivacaine 0.5% INJ 10 mL 20 ML INJECTION (07:42)
[2023-09-28] MEDS: BUPivacaine liposome 13.3 mg/mL SDV 10 mL 266 MG INFILTRATI (07:43)
--- NOTE | 2023-09-28 13:36 | ANE.PACU2 ---
Inpatient post-anesthesia follow up: Airway intact: Yes Vital signs: Temperature 97 F Pulse Rate 63 Respiratory Rate 18 Blood Pressure 103/67 Pulse Oximetry 98 Oxygen Delivery Me thod Room Air Oxygen Flow Rate Fraction of Inspir ed Oxygen Hydration adequate: Yes Nausea and vomiting: No Pain level: 1 Mental status: Baseline
== END 2023-09-28 10:05 | disposition home or self-care (01) ==
PROVIDERS: PCP Nurse Practitioner Family; Visit Provider Podiatrist Foot & Ankle Surgery
PROC: (CPT 28740; principal; 2023-09-28 07:40)
DX: M20.22 Hallux rigidus, left foot (principal); M79.7 Fibromyalgia; Z87.891 Personal history of nicotine dependence; E03.9 Hypothyroidism, unspecified
CPT/HCPCS: 28750; 73620; 76000; C1713; C9290; J0690; J2250; J2704; J3010; J3490; J7030

== ENCOUNTER → 2023-10-11 13:22 | Outpatient (BNVA) | payer OTHER, SELFPAY | PROVIDERS: PCP Nurse Practitioner Family; Visit Provider Podiatrist Foot & Ankle Surgery | DX: Z98.890 Other specified postprocedural states (principal) | CPT/HCPCS: 73630; 99024 ==

== ENCOUNTER → 2023-10-25 13:46 | Outpatient (BNVA) | payer OTHER, SELFPAY | PROVIDERS: PCP Nurse Practitioner Family; Visit Provider Podiatrist Foot & Ankle Surgery | DX: Z98.890 Other specified postprocedural states (principal) | CPT/HCPCS: 73630; 99024 ==

== ENCOUNTER → 2023-11-08 14:24 | Outpatient (BNVA) | payer OTHER, SELFPAY | PROVIDERS: PCP Nurse Practitioner Family; Visit Provider Podiatrist Foot & Ankle Surgery | DX: Z98.890 Other specified postprocedural states (principal) | CPT/HCPCS: 73630; 99024 ==

== ENCOUNTER → 2023-12-13 13:00 | Outpatient (BNVA) | payer OTHER, SELFPAY | PROVIDERS: PCP Nurse Practitioner Family; Visit Provider Podiatrist Foot & Ankle Surgery | DX: Z98.890 Other specified postprocedural states (principal) | CPT/HCPCS: 73630; 99024 ==

== ENCOUNTER → 2024-02-06 09:59 | Outpatient (BNVA) | payer OTHER, SELFPAY | PROVIDERS: PCP Nurse Practitioner Family; Visit Provider Nurse Practitioner Family | DX: M79.642 Pain in left hand (principal) | CPT/HCPCS: 73130 ==

== ENCOUNTER → 2024-11-11 15:51 | Outpatient (BNVA) | payer OTHER, SELFPAY | PROVIDERS: PCP Nurse Practitioner Family; Visit Provider Nurse Practitioner Family | DX: Z13.6 Encounter for screening for cardiovascular disorders (principal); E03.8 Other specified hypothyroidism; E06.3 Autoimmune thyroiditis; E55.9 Vitamin D deficiency, unspecified; Z79.899 Other long term (current) drug therapy | CPT/HCPCS: 80053; 80061; 81003; 82306; 83036; 84443; 85025; 87086 ==

== ENCOUNTER → 2024-11-12 | Outpatient (BNVA) | payer OTHER, SELFPAY | PROVIDERS: PCP Nurse Practitioner Family; Visit Provider Nurse Practitioner Family | DX: D51.8 Other vitamin B12 deficiency anemias (principal) | CPT/HCPCS: 82607 ==

== ENCOUNTER → 2024-11-14 11:55 | Outpatient (BNVA) | payer OTHER, SELFPAY | PROVIDERS: PCP Nurse Practitioner Family; Visit Provider Nurse Practitioner Family | DX: N39.0 Urinary tract infection, site not specified (principal) | CPT/HCPCS: 81003 ==

== ENCOUNTER → 2025-04-09 08:20 | Outpatient (BNVA) | payer OTHER, SELFPAY | PROVIDERS: PCP Nurse Practitioner Family; Visit Provider Nurse Practitioner Family | DX: E03.8 Other specified hypothyroidism (principal); E06.3 Autoimmune thyroiditis | CPT/HCPCS: 80053; 84443 ==

== ENCOUNTER → 2025-04-14 09:13 | Outpatient (BNVA) | payer OTHER, SELFPAY | PROVIDERS: PCP Nurse Practitioner Family; Visit Provider Nurse Practitioner Family | DX: R39.9 Unspecified symptoms and signs involving the genitourinary system (principal) | CPT/HCPCS: 81000 ==

== ENCOUNTER 2025-04-24 10:06 | Outpatient (CLI) | payer OTHER, SELFPAY ==
--- NOTE | 2025-04-24 10:11 | MM_ITS ---
WS: [id number] BILATERAL 3D TOMOSYNTHESIS DIGITAL SCREENING MAMMOGRAPHY WITH CAD CLINICAL INFORMATION: SCREENING HISTORY: Screening mammogram. No current complaints. COMPARISON: 2020 TECHNIQUE: Bilateral CC and MLO views. FINDINGS: Stable bilateral retropectoral breast implants. Scattered fibroglandular densities bilaterally. Lobulated ovoid nodular density outer RIGHT breast measuring 1.7 cm appears new from previous. Recommend further evaluation with RIGHT breast diagnostic mammography and ultrasound. In addition, dense asymmetric density measuring 1.5 cm outer LEFT breast best seen on the ML view appears new or progressed compared to previous. Recommend further evaluation with LEFT breast diagnostic mammography and ultrasound. This is in the upper outer quadrant LEFT breast. MM/MM [facility] tomosynthesis [id number] IMPRESSION: DENSITY: There are scattered areas of fibroglandular density. BI-RADS: 0 - Incomplete: Need additional imaging evaluation. FOLLOW UP: Need Additional Imaging Recommend bilateral breast diagnostic mammography and bilateral ultrasound.
--- NOTE | 2025-04-24 10:15 | US_ITS ---
WS: [id number] THYROID ULTRASOUND HISTORY: E04.1 - Nontoxic single thyroid nodule COMPARISON: 07/20/2023 Right lobe: 1.5 cm x 1.6 cm x 4.2 cm (w x ap x l). Volume: 4.7 cm3. Heterogeneous gland. No increased vascularity. There are a few small cystic nodules. Small nodule superior pole measures 1.0 x 0.4 x 0.5 cm. Left lobe: 1.1 cm x 1.2 cm x 3.2 cm (w x ap x l). Volume: 2.0 cm3. Small caliber lobe. Mildly heterogeneous with no dominant nodule. Isthmus: 0.2 cm. US/US thyroid [id number] IMPRESSION: TI-RADS 2; no suspicious nodule for which FNA should be obtained.
== END 2025-04-24 10:07 | disposition home or self-care (01) ==
LOC: RAD 10:07
PROVIDERS: PCP Nurse Practitioner Family; Visit Provider Nurse Practitioner Family
DX: Z12.31 Encounter for screening mammogram for malignant neoplasm of breast (principal); E04.2 Nontoxic multinodular goiter; R92.323 Mammographic fibroglandular density, bilateral breasts; N63.10 Unspecified lump in the right breast, unspecified quadrant; N63.21 Unspecified lump in the left breast, upper outer quadrant
CPT/HCPCS: 76536; 77063; 77067

== ENCOUNTER 2025-05-04 12:23 | Outpatient (CLI) | payer OTHER, SELFPAY ==
--- NOTE | 2025-05-04 12:30 | MM_ITS ---
WS: [id number] BILATERAL 3D TOMOSYNTHESIS DIGITAL DIAGNOSTIC MAMMOGRAPHY WITH CAD CLINICAL INFORMATION: R92.8 - Other abnormal and inconclusive findings on diagn... COMPARISON: Additional views TECHNIQUE: Bilateral CC, MLO, and ML views. FINDINGS: Scattered fibroglandular densities bilaterally. Lobulated ovoida nodular density outer RIGHT breast is similar in appearance. Ultrasound is pending. Nodular ovoid asymmetric density outer LEFT breast best seen on the MLO view also is persistent. Ultrasound of this area is pending No suspicious focal mass, asymmetry, calcifications, or architectural distortion. No evidence of malignancy. ULTRASOUND BREAST BILATERAL TECHNIQUE: Ultrasound bilateral breast focused area of concern. CLINICAL INFORMATION: R92.8 - Other abnormal and inconclusive findings on diagn... FINDINGS: Ultrasound findings are benign described below. RIGHT BREAST: Ultrasound upper outer RIGHT breast. Incidental simple cyst at the 9 o'clock position measuring 1.6 x 1.6 cm. LEFT BREAST: Ultrasound upper outer LEFT breast. Dense underlying parenchymal tissue. No suspicious cystic or solid lesions. MM/MM diag tomosynthesis [id number] IMPRESSION: DENSITY: There are scattered areas of fibroglandular density. BI-RADS: 2 - Benign. FOLLOW UP: 1 Year Follow-up Recommend return to annual screening mammography.
--- NOTE | 2025-05-04 13:00 | US_ITS ---
WS: [id number] BILATERAL 3D TOMOSYNTHESIS DIGITAL DIAGNOSTIC MAMMOGRAPHY WITH CAD CLINICAL INFORMATION: R92.8 - Other abnormal and inconclusive findings on diagn... COMPARISON: Additional views TECHNIQUE: Bilateral CC, MLO, and ML views. FINDINGS: Scattered fibroglandular densities bilaterally. Lobulated ovoida nodular density outer RIGHT breast is similar in appearance. Ultrasound is pending. Nodular ovoid asymmetric density outer LEFT breast best seen on the MLO view also is persistent. Ultrasound of this area is pending No suspicious focal mass, asymmetry, calcifications, or architectural distortion. No evidence of malignancy. ULTRASOUND BREAST BILATERAL TECHNIQUE: Ultrasound bilateral breast focused area of concern. CLINICAL INFORMATION: R92.8 - Other abnormal and inconclusive findings on diagn... FINDINGS: Ultrasound findings are benign described below. RIGHT BREAST: Ultrasound upper outer RIGHT breast. Incidental simple cyst at the 9 o'clock position measuring 1.6 x 1.6 cm. LEFT BREAST: Ultrasound upper outer LEFT breast. Dense underlying parenchymal tissue. No suspicious cystic or solid lesions. US/US breast BI limited* [id number] IMPRESSION: DENSITY: There are scattered areas of fibroglandular density. BI-RADS: 2 - Benign. FOLLOW UP: 1 Year Follow-up Recommend return to annual screening mammography.
== END 2025-05-04 12:24 | disposition home or self-care (01) ==
LOC: RAD 12:23
PROVIDERS: PCP Nurse Practitioner Family; Visit Provider Nurse Practitioner Family
DX: N60.01 Solitary cyst of right breast (principal)
CPT/HCPCS: 76642; 77062; G0279

== ENCOUNTER 2025-05-27 13:49 | Outpatient (CLI) | payer OTHER, SELFPAY ==
--- NOTE | 2025-05-27 14:30 | MR_ITS ---
WS: [id number] MRI BRAIN WITH AND WITHOUT CONTRAST HISTORY: G93.9 - Disorder of brain, unspecified COMPARISON: None available. TECHNIQUE: Multiplanar imaging performed through the brain with MultiHance 16 ml's IV. No acute infarcts are seen. Tam-white matter differentiation is well preserved. No hippocampal atrophy. No susceptibility artifacts or prior lacunar infarcts. Ventricles and extra-axial spaces are normal. Clivus and pituitary gland are normal. Visualized posterior fossa and brainstem are also normal. Postcontrast images are negative for masses or vascular malformations. Dural venous sinuses are normal. Paranasal sinuses: Well aerated with no significant disease. Mastoid air cells: Normal. Calvarium and scalp: Normal. MR/MR head wo/w con [id number] IMPRESSION: 1. Normal MRI brain with contrast. 2. No prior infarcts. No gadolinium enhancement. 3. Normal hippocampal formations.
[2025-05-27] MEDS: gadobenate dimeglumine 20 mL vial IV (15:04)
== END 2025-05-27 13:50 | disposition home or self-care (01) ==
LOC: RAD 13:49
PROVIDERS: PCP Nurse Practitioner Family; Visit Provider Nurse Practitioner Family
DX: G93.9 Disorder of brain, unspecified (principal); R41.3 Other amnesia
CPT/HCPCS: 70553

== ENCOUNTER → 2025-06-05 10:01 | Outpatient (BNVA) | payer OTHER, SELFPAY | PROVIDERS: PCP Nurse Practitioner Family; Visit Provider Nurse Practitioner Family | DX: E03.9 Hypothyroidism, unspecified (principal); E03.8 Other specified hypothyroidism; E06.3 Autoimmune thyroiditis; E04.1 Nontoxic single thyroid nodule; E66.3 Overweight; E55.9 Vitamin D deficiency, unspecified; D64.9 Anemia, unspecified | CPT/HCPCS: 80053; 80061; 81003; 82306; 82607; 82728; 82746; 83036; 83550; 84439; 84443; 85025; 87086 ==

== ENCOUNTER → 2025-06-08 11:32 | Outpatient (BNVA) | payer OTHER, SELFPAY | PROVIDERS: PCP Nurse Practitioner Family; Visit Provider Emergency Medicine | DX: N39.0 Urinary tract infection, site not specified (principal); R39.9 Unspecified symptoms and signs involving the genitourinary system | CPT/HCPCS: 81000; 87077; 87086; 87184 ==